=== PATIENT | female | born 1975 | race Caucasian/White ===

== ENCOUNTER 2016-09-14 11:26 | Emergency (ER) | payer OTHER ==
[~2016-09-14] VITALS: Ht 167.6 cm; Wt 130.5 kg
[2016-09-14] MEDS ORDERED: ONDANSETRON 2MG/ML, 2ML IVPush ONE (12:00)
[2016-09-14] MEDS ORDERED: SODIUM CHLORIDE 0.9% 1,000ML IVBOLUS ONE (12:00)
[2016-09-14] MEDS ORDERED: MORPHINE SULFATE 4 MG/ML, 1ML IVPush PRN (12:00)
[2016-09-14] MEDS ORDERED: SODIUM CHLORIDE FLUSH 10ML SYR IVF ONE (12:00)
[2016-09-14] MEDS ORDERED: LISI-167 PO (12:19)
[2016-09-14] MEDS ORDERED: SIMV40TA3 PO (12:19)
[2016-09-14] MEDS ORDERED: FENO54TA17 PO (12:19)
[2016-09-14] MEDS ORDERED: METF500T4 PO (12:19)
[2016-09-14 12:35] LABS: ASPARTATE AMINO TRANSFERASE 9 U/L (15-37); BLOOD UREA NITROGEN 14 mg/dL (7-18)
[2016-09-14] MEDS ORDERED: ONDANSETRON 2MG/ML, 2ML ONE (12:39)
[2016-09-14] MEDS ORDERED: MORPHINE SULFATE 4 MG/ML, 1ML ONE (12:43)
[2016-09-14] MEDS ORDERED: OMNIPAQUE 350 MG/ML, 100ML BOTTLE ONE (14:46)
[2016-09-14 14:56] VITALS: BP 103/56
== END 2016-09-14 15:19 | disposition home or self-care (01) ==
LOC: ED 15:00
DX: R19.7 Diarrhea, unspecified (principal); R11.2 Nausea with vomiting, unspecified; R10.31 Right lower quadrant pain; R10.32 Left lower quadrant pain; E11.9 Type 2 diabetes mellitus without complications; G43.909 Migraine, unspecified, not intractable, without status migrainosus; M19.90 Unspecified osteoarthritis, unspecified site; Z87.891 Personal history of nicotine dependence
CPT/HCPCS: 36415; 74177; 80053; 81001; 84703; 85025; 87086; 96374; 96375; 99285; J2405; J7030; Q9967

== ENCOUNTER 2018-02-19 17:27 | Emergency (ER) | payer OTHER ==
[~2018-02-19] VITALS: Ht 165.1 cm; Wt 142.0 kg
[~2018-02-19 17:27] MED LIST: FENO54TA17 PO; LISI-167 PO; METF500T17 PO; SIMV40TA3 PO
[2018-02-19 17:36] VITALS: BP 172/83
[2018-02-19] MEDS ORDERED: HYDROcodone/APAP 5/325 TABLET PO STA (18:01)
[2018-02-19] MEDS ORDERED: KETOROLAC 30 MG/1 ML ONE (18:06)
[2018-02-19] MEDS ORDERED: HYDROcodone/APAP 5/325 TABLET ONE (18:06)
[2018-02-19] MEDS ORDERED: KETOROLAC 60 MG/2 ML IM ONE (18:30)
== END 2018-02-19 18:39 | disposition home or self-care (01) ==
LOC: ED 18:33
DX: M75.32 Calcific tendinitis of left shoulder (principal); E11.65 Type 2 diabetes mellitus with hyperglycemia; K85.90 Acute pancreatitis without necrosis or infection, unspecified; F17.210 Nicotine dependence, cigarettes, uncomplicated
CPT/HCPCS: 73030; 82962; 96372; 99284; 99406; J1885